=== PATIENT | male | born 1985 | race Caucasian/White ===

== ENCOUNTER → 2021-01-22 10:53 | Outpatient (CLI) | payer OTHER, SELFPAY ==
[2021-01-22] MEDS: COVID-19 VACC #1, MRNA(MOD) 100 MCG/0.5 ML VIAL IM (11:02)
== END ==
PROVIDERS: Visit Provider Internal Medicine
DX: Z23 Encounter for immunization (principal)
CPT/HCPCS: 0011A; 91301